=== PATIENT | male | born 1955 | race African-American/Black ===

== ENCOUNTER 2025-07-08 18:28 | Emergency (ER) | payer MEDICARE, MEDICAID ==
[~2025-07-08] VITALS: Ht 167.6 cm; Wt 65.0 kg
[2025-07-08 18:36] VITALS: O2SAT 100
[2025-07-08] MEDS ORDERED: MECLIZINE 12.5MG TABLET PO ONE (19:00)
[2025-07-08 19:40] LABS: BASOPHILS % 0.7 % (0.0-2.0); EOSINOPHILS % 3.6 % (0.0-5.0); HEMATOCRIT. 32.3 % (42.0-52.0); HEMOGLOBIN. 10.7 g/dL (14.0-18.0); LYMPHOCYTES % 14.5 % (20.0-50.0); MEAN PLATELET VOLUME 9.3 fl (7.4-10.4); MONOCYTES % 10.0 % (2.0-8.0); NEUTROPHILS % 71.2 % (40.0-76.0); PLATELET 318 x1000/uL (130-400); RED BLOOD CELL COUNT 3.70 mill/uL (4.7-6.1); RED CELL DISTRIBUTION WIDTH 16.2 % (11.6-14.6)
[2025-07-08 19:51] LABS: INR 1.0
[2025-07-08 19:53] LABS: CREATININE 3.1 mg/dL (0.6-1.3)
[2025-07-08 19:54] LABS: ETHANOL BLOOD < 10 mg/dL (<10); UREA NITROGEN BLOOD 22 mg/dL (9-23)
[2025-07-08] MEDS: MECLIZINE 12.5MG TABLET PO SCH (19:55)
[2025-07-08 19:56] LABS: ASPARTATE AMINOTRANSFERASE 8 IU/L (<34); BILIRUBIN DIRECT < 0.1 mg/dL (<=3.0); BILIRUBIN TOTAL 0.2 mg/dL (0.1-1.0); PROTEIN TOTAL 7.2 g/dL (6.0-8.3); TROPONIN I HIGH SENSITIVITY 37 ng/L (3.0-53)
[2025-07-09 00:35] VITALS: BP 169/92; PULSE 105; RESP 19; TEMP 36.7; O2SAT 100
== END 2025-07-09 01:47 | disposition left against medical advice (07) ==
LOC: ER 18:28 → EDBEDREQ 07-09 01:12 → EDBEDREQTM 07-09 01:12 → ENRESERV 07-09 01:25 → CANBEDREQ 07-09 01:43 → ER 07-09 01:47
DX: I63.9 Cerebral infarction, unspecified (principal); I10 Essential (primary) hypertension; R42 Dizziness and giddiness; R06.02 Shortness of breath; Z00.00 Encounter for general adult medical examination without abnormal findings; Z79.82 Long term (current) use of aspirin; Z86.73 Personal history of transient ischemic attack (TIA), and cerebral infarction without residual deficits
CPT/HCPCS: 80076; 80048; 80320; 82962; 83880; 83605; 85025; 85610; 85730; 87040; 84484; 36415; 84145; 71045; 70450; 93005; 99285; J8597; G0480